=== PATIENT | female | born 1975 | race American Indian/Alaskan Native ===

== ENCOUNTER 2022-04-04 15:39 | Emergency (ER) | payer MEDICAID, OTHER ==
--- NOTE | 2022-04-04 17:35 | Emergency Department Report ---
ED Altered Mental Status HPI - General Chief Complaint: Altered Mental Status Stated Complaint: ALTERED MENTAL Time Seen by Provider: 04/04/22 17:28 Source: EMS Mode of arrival: Stretcher Limitations: Altered Mental Status - History of Present Illness Initial Comments: Patient is a 46-year-old male brought in by EMS from home for altered mental status. He was apparently found by his friends on the floor and not speaking. He is awake and alert however nonverbal. He is moving all extremities. Responds to voice however does not follow commands. - Related Data Allergies Allergy/AdvReac Type Severity Reaction Status Date / Time No Known Allergies Allergy Unverified 04/04/22 18:37 ED Review of Systems ROS: Stated complaint: ALTERED MENTAL Other details as noted in HPI Comment: Unobtainable due to pts medical conditions ED Past Medical Hx - Past Medical History Previous Medical History?: Yes Hx Diabetes: Yes Additional medical history: PTSD,KIDNEY DISEASE - Surgical History Past Surgical History?: No ED Physical Exam - General Limitations: Altered Mental Status General appearance: alert, in no apparent distress - Head Head exam: Present: atraumatic, normocephalic - Eye Eye exam: Present: normal appearance, PERRL, EOMI - Neck Neck exam: Absent: tenderness - Respiratory Respiratory exam: Present: normal lung sounds bilaterally. Absent: respiratory distress - Cardiovascular Cardiovascular Exam: Present: regular rate, normal rhythm, normal heart sounds - GI/Abdominal GI/Abdominal exam: Present: soft. Absent: distended, tenderness - Rectal Rectal exam: Present: deferred - Extremities Exam Extremities exam: Absent: tenderness, pedal edema - Neurological Exam Neurological exam: Present: alert, altered - Skin Skin exam: Present: warm, dry, intact, normal color ED Course Vital Signs 04/04/22 04/04/22 04/04/22 15:43 17:28 18:32 Temperature 98.7 F 98.6 F Pulse Rate 108 H 108 H 103 H Respiratory 18 18 12 Rate Blood Pressure Blood Pressure 165/77 173/77 [Left] O2 Sat by Pulse 99 99 100 Oximetry 04/04/22 04/04/22 04/04/22 18:40 20:33 20:45 Temperature Pulse Rate 82 101 H Respiratory 18 24 Rate Blood Pressure 170/89 Blood Pressure 155/85 [Left] O2 Sat by Pulse 99 90 99 Oximetry - Lab Data Result diagrams: 04/04/22 17:56 04/04/22 17:56 Lab Results 04/04/22 04/04/22 04/04/22 Range/Units 17:56 17:56 17:56 WBC 4.8 (4.5-11.0) K/mm3 RBC 3.21 L (3.65-5.03) M/mm3 Hgb 10.7 (10.1-14.3) gm/dl Hct 31.3 (30.3-42.9) % MCV 98 H (79-97) fl MCH 33 H (28-32) pg MCHC 34 (30-34) % RDW 15.9 H (13.2-15.2) % Plt Count 294 (140-440) K/mm3 Lymph % (Auto) 37.4 H (13.4-35.0) % [place] % (Auto) 9.4 H (0.0-7.3) % Eos % (Auto) 3.7 (0.0-4.3) % Baso % (Auto) 0.5 (0.0-1.8) % Lymph # (Auto) 1.8 (1.2-5.4) K/mm3 [place] # (Auto) 0.4 (0.0-0.8) K/mm3 Eos # (Auto) 0.2 (0.0-0.4) K/mm3 Baso # (Auto) 0.0 (0.0-0.1) K/mm3 Seg Neutrophils % 49.0 (40.0-70.0) % Seg Neutrophils # 2.3 (1.8-7.7) K/mm3 PT (12.2-14.9) Sec. INR (0.87-1.13) APTT (24.2-36.6) Sec. Sodium 141 (137-145) mmol/L Potassium 5.0 (3.6-5.0) mmol/L Chloride 97.6 L (98-107) mmol/L Carbon Dioxide 26 (22-30) mmol/L Anion Gap 22 mmol/L BUN 48 H (7-17) mg/dL Creatinine 13.6 H (0.6-1.2) mg/dL Estimated GFR 4 ml/min BUN/Creatinine Ratio 4 % Glucose 182 H (65-100) mg/dL Calcium 9.6 (8.4-10.2) mg/dL Total Bilirubin 0.40 (0.1-1.2) mg/dL AST 21 (5-40) units/L ALT 11 (7-56) units/L Alkaline Phosphatase 128 (35-129) units/L Ammonia (25-60) umol/L Total Creatine Kinase 289 H (30-135) units/L Troponin T 0.336 H* (0.00-0.029) ng/mL Total Protein 8.4 H (6.3-8.2) g/dL Albumin 4.8 (3.9-5) g/dL Albumin/Globulin Ratio 1.3 % Triglycerides 153 H (2-149) mg/dL Cholesterol 235 H (50-199) mg/dL LDL Cholesterol Direct 158 H (50-130) mg/dL HDL Cholesterol 48 (40-59) mg/dL Cholesterol/HDL Ratio 4.89 % Salicylates < 0.3 L (2.8-20.0) mg/dL Acetaminophen (10.0-30.0) ug/mL Plasma/Serum Alcohol (0-0.07) % 04/04/22 04/04/22 04/04/22 Range/Units 17:56 17:56 17:56 WBC (4.5-11.0) K/mm3 RBC (3.65-5.03) M/mm3 Hgb (10.1-14.3) gm/dl Hct (30.3-42.9) % MCV (79-97) fl MCH (28-32) pg MCHC (30-34) % RDW (13.2-15.2) % Plt Count (140-440) K/mm3 Lymph % (Auto) (13.4-35.0) % [place] % (Auto) (0.0-7.3) % Eos % (Auto) (0.0-4.3) % Baso % (Auto) (0.0-1.8) % Lymph # (Auto) (1.2-5.4) K/mm3 [place] # (Auto) (0.0-0.8) K/mm3 Eos # (Auto) (0.0-0.4) K/mm3 Baso # (Auto) (0.0-0.1) K/mm3 Seg Neutrophils % (40.0-70.0) % Seg Neutrophils # (1.8-7.7) K/mm3 PT 15.0 H (12.2-14.9) Sec. INR 1.06 (0.87-1.13) APTT 42.5 H (24.2-36.6) Sec. Sodium (137-145) mmol/L Potassium (3.6-5.0) mmol/L Chloride (98-107) mmol/L Carbon Dioxide (22-30) mmol/L Anion Gap mmol/L BUN (7-17) mg/dL Creatinine (0.6-1.2) mg/dL Estimated GFR ml/min BUN/Creatinine Ratio % Glucose (65-100) mg/dL Calcium (8.4-10.2) mg/dL Total Bilirubin (0.1-1.2) mg/dL AST (5-40) units/L ALT (7-56) units/L Alkaline Phosphatase (35-129) units/L Ammonia (25-60) umol/L Total Creatine Kinase (30-135) units/L Troponin T (0.00-0.029) ng/mL Total Protein (6.3-8.2) g/dL Albumin (3.9-5) g/dL Albumin/Globulin Ratio % Triglycerides (2-149) mg/dL Cholesterol (50-199) mg/dL LDL Cholesterol Direct (50-130) mg/dL HDL Cholesterol (40-59) mg/dL Cholesterol/HDL Ratio % Salicylates (2.8-20.0) mg/dL Acetaminophen 5.0 L (10.0-30.0) ug/mL Plasma/Serum Alcohol < 0.01 (0-0.07) % 04/04/22 Range/Units 17:56 WBC (4.5-11.0) K/mm3 RBC (3.65-5.03) M/mm3 Hgb (10.1-14.3) gm/dl Hct (30.3-42.9) % MCV (79-97) fl MCH (28-32) pg MCHC (30-34) % RDW (13.2-15.2) % Plt Count (140-440) K/mm3 Lymph % (Auto) (13.4-35.0) % [place] % (Auto) (0.0-7.3) % Eos % (Auto) (0.0-4.3) % Baso % (Auto) (0.0-1.8) % Lymph # (Auto) (1.2-5.4) K/mm3 [place] # (Auto) (0.0-0.8) K/mm3 Eos # (Auto) (0.0-0.4) K/mm3 Baso # (Auto) (0.0-0.1) K/mm3 Seg Neutrophils % (40.0-70.0) % Seg Neutrophils # (1.8-7.7) K/mm3 PT (12.2-14.9) Sec. INR (0.87-1.13) APTT (24.2-36.6) Sec. Sodium (137-145) mmol/L Potassium (3.6-5.0) mmol/L Chloride (98-107) mmol/L Carbon Dioxide (22-30) mmol/L Anion Gap mmol/L BUN (7-17) mg/dL Creatinine (0.6-1.2) mg/dL Estimated GFR ml/min BUN/Creatinine Ratio % Glucose (65-100) mg/dL Calcium (8.4-10.2) mg/dL Total Bilirubin (0.1-1.2) mg/dL AST (5-40) units/L ALT (7-56) units/L Alkaline Phosphatase (35-129) units/L Ammonia 20.0 L (25-60) umol/L Total Creatine Kinase (30-135) units/L Troponin T (0.00-0.029) ng/mL Total Protein (6.3-8.2) g/dL Albumin (3.9-5) g/dL Albumin/Globulin Ratio % Triglycerides (2-149) mg/dL Cholesterol (50-199) mg/dL LDL Cholesterol Direct (50-130) mg/dL HDL Cholesterol (40-59) mg/dL Cholesterol/HDL Ratio % Salicylates (2.8-20.0) mg/dL Acetaminophen (10.0-30.0) ug/mL Plasma/Serum Alcohol (0-0.07) % - Medical Decision Making CT head shows no acute intracranial process. Patient was able to walk back from CT scanner. Labs reviewed and show chronic renal failure along with elevated troponin. Patient denies any chest pain. Likely related to his chronic kidney disease. Potassium 5.0. On reassessment he is speaking normally and denies any complaints. Stable discharge home with return precautions. Critical care attestation.: If time is entered above; I have spent that time in minutes in the direct care o f this critically ill patient, excluding procedure time. ED Disposition Clinical Impression: Altered mental status, unspecified Disposition: 01 HOME / SELF CARE / HOMELESS Is pt being admited?: No Condition: Stable Additional Instructions: Please follow-up with your regular doctor as needed. You may return if your symptoms worsen. Time of Disposition: 20:58
[2022-04-04 18:40] LABS: Basophils % (Auto) 0.5 % (0.0-1.8); Eosinophils # (Auto) 0.2 K/mm3 (0.0-0.4); Eosinophils % (Auto) 3.7 % (0.0-4.3); Hematocrit 31.3 % (30.3-42.9); Hemoglobin 10.7 gm/dl (10.1-14.3); Lymphocytes # (Auto) 1.8 K/mm3 (1.2-5.4); Lymphocytes % (Auto) 37.4 % (13.4-35.0); Mean Corpuscular HGB Conc 34 % (30-34); Mean Corpuscular Volume 98 fl (79-97); Monocytes # (Auto) 0.4 K/mm3 (0.0-0.8); Monocytes % (Auto) 9.4 % (0.0-7.3); Platelet Count 294 K/mm3 (140-440); Red Blood Count 3.21 M/mm3 (3.65-5.03); Red Cell Distribution Width 15.9 % (13.2-15.2)
[2022-04-04 18:47] LABS: INR 1.06 (0.87-1.13)
[2022-04-04 18:48] LABS: Partial Thromboplastin Time 42.5 Sec. (24.2-36.6)
[2022-04-04 18:55] LABS: Albumin 4.8 g/dL (3.9-5); Calcium 9.6 mg/dL (8.4-10.2)
--- NOTE | 2022-04-04 19:17 | Cat Scan Report ---
CT head/brain wo con INDICATION / CLINICAL INFORMATION: 46 years Female; Altered Mental Status. TECHNIQUE: Routine CT head without contrast. All CT scans at this location are performed using CT dos e reduction for ALARA by means of automated exposure control. COMPARISON: None. FINDINGS: BRAIN / INTRACRANIAL CONTENTS: The brain parenchyma appears to demonstrate appropriate attenuation. T he ventricular system is within normal limits in size and configuration. There is no clear CT evidenc e of acute intracranial hemorrhage or significant mass effect. ORBITS: No significant abnormality of visualized orbits. SINUSES / MASTOIDS: No significant abnormality in the visualized paranasal sinuses or mastoid air zechariah ls. CRANIOCERVICAL JUNCTION: No significant abnormality. ADDITIONAL FINDINGS: None. IMPRESSION: 1. There is no CT evidence of acute intracranial process. Signer Name: Osvaldo Farias MD Signed: 04/04/2022 7:13 PM Workstation Name: [id number]
[2022-04-04 19:18] LABS: Chol/HDL Ratio 4.89 %
[2022-04-04 20:55] VITALS: BP 170/89
--- NOTE | 2022-04-05 09:32 | Electrocardiograph Report ---
[facility] Test Date: 2022-04-04 Test Time: 17:51:17 Pat Name: DAREN KABA Department: Room: Gender: F Certified Pharmacy Technician: 0000 : 1975 Requested By: ARNULFO NORMAN Order Number: [id number] Reading MD: Francis Cazares Measurements Intervals [place] Rate: 109 P: 53 MD: 164 QRS: 52 QRSD: 84 T: 17 QT: 358 QTc: 482 Interpretive Statements Sinus tachycardia No previous ECG available for comparison Electronically Signed On 04-05-2022 9:32:38 EDT by Francis Cazares
== END 2022-04-04 21:11 | disposition home or self-care (01) ==
LOC: ED 15:39
DX: R41.82 Altered mental status, unspecified (principal); E11.9 Type 2 diabetes mellitus without complications
CPT/HCPCS: 36415; 70450; 80053; 80061; 80320; 82140; 82550; 84484; 85025; 85610; 85730; 93005; 99284; G0480

== ENCOUNTER 2022-04-10 09:14 | Inpatient (IN) | payer MEDICARE ==
[2022-04-10] MEDS ORDERED: SODIUM CHLORIDE 0.9% 1000 ML 1,000 ML IV ONE (09:35)
[2022-04-10] MEDS ORDERED: MORPHINE 4 MG/1 ML INJ IV ONE (09:35)
[2022-04-10] MEDS ORDERED: ONDANSETRON 4 MG/2 ML INJ IV ONE (09:35)
[2022-04-10 10:40] LABS: Basophils % (Auto) 1.1 % (0.0-1.8); Eosinophils # (Auto) 0.2 K/mm3 (0.0-0.4); Eosinophils % (Auto) 4.5 % (0.0-4.3); Hematocrit 27.8 % (30.3-42.9); Hemoglobin 9.4 gm/dl (10.1-14.3); Lymphocytes # (Auto) 1.4 K/mm3 (1.2-5.4); Mean Corpuscular HGB Conc 34 % (30-34); Mean Corpuscular Volume 98 fl (79-97); Monocytes # (Auto) 0.4 K/mm3 (0.0-0.8); Platelet Count 268 K/mm3 (140-440); Red Blood Count 2.84 M/mm3 (3.65-5.03); Red Cell Distribution Width 15.9 % (13.2-15.2)
[2022-04-10 10:52] LABS: Alanine Aminotransferase 22 units/L (7-56); Albumin 4.6 g/dL (3.9-5); Blood Urea Nitrogen 83 mg/dL (7-17); Calcium 8.6 mg/dL (8.4-10.2); Hemolysis Index 18
[2022-04-10 10:54] LABS: BUN/Creatinine Ratio 4; Bilirubin,Direct < 0.2 mg/dL (0-0.2)
[2022-04-10] MEDS ORDERED: SODIUM POLYSTYRENE 15 GM/60 ML ORAL LIQD PO ONE (11:38)
--- NOTE | 2022-04-10 12:34 | Emergency Department Report ---
ED N/V/D HPI - General Chief complaint: Abdominal Pain Stated complaint: ABD PAIN Time Seen by Provider: 04/10/22 09:33 Source: patient, EMS Mode of arrival: Stretcher Limitations: No Limitations - History of Present Illness Initial comments: Patient is a 46-year-old male presenting the ED with complaint of nausea and vomiting with abdominal cramping. Recently diagnosed with kidney failure several weeks ago and seen at [facility] where he received his initial dialysis. He was seen here a little over a week later due to shortness of breath and required dialysis as he had not yet been set up with outpatient dialysis center. States his designated dialysis center is [facility] however he has not yet received an appointment. - Related Data Home Medications Medication Instructions Recorded Confirmed Last Taken ARIPiprazole [Abilify TAB] 2.5 mg PO DAILY 04/10/22 04/10/22 Unknown Apixaban [Eliquis] 5 mg PO QDAY 04/10/22 04/10/22 Unknown Calcium Acetate 667 mg PO QDAY 04/10/22 04/10/22 Unknown Cinacalcet [Sensipar] 30 mg PO BID 04/10/22 04/10/22 Unknown Dolutegravir Sodium/Lamivudine 1 each PO QDAY 04/10/22 04/10/22 Unknown [Dovato 50-300 mg Tablet] Pantoprazole [Protonix] 40 mg PO QDAY 04/10/22 04/10/22 Unknown Sertraline [Zoloft] 50 mg PO QDAY 04/10/22 04/10/22 Unknown amLODIPine [Norvasc] 10 mg PO DAILY 04/10/22 04/10/22 Unknown carvediloL [Coreg] 25 mg PO BID 04/10/22 04/10/22 Unknown glipiZIDE [Glucotrol] 5 mg PO QDAY 04/10/22 04/10/22 Unknown hydroCHLOROthiazide [HCTZ] 25 mg PO QDAY 04/10/22 04/10/22 Unknown lamoTRIgine [LaMICtal Xr] 300 mg PO QDAY 04/10/22 04/10/22 Unknown Allergies Allergy/AdvReac Type Severity Reaction Status Date / Time No Known Allergies Allergy Verified 04/10/22 10:07 ED Review of Systems ROS: Stated complaint: ABD PAIN Other details as noted in HPI Constitutional: denies: chills, fever Respiratory: denies: cough, shortness of breath, wheezing Cardiovascular: denies: chest pain, palpitations Gastrointestinal: abdominal pain, nausea, vomiting. denies: diarrhea Genitourinary: denies: urgency, dysuria, discharge Musculoskeletal: denies: back pain, joint swelling, arthralgia Skin: denies: rash, lesions Neurological: as per HPI Psychiatric: denies: anxiety, depression ED Past Medical Hx - Past Medical History Hx Hypertension: Yes Hx Diabetes: Yes Hx Renal Disease: Yes (HD) Hx HIV: Yes Additional medical history: PTSD,KIDNEY DISEASE - Social History Smoking Status: Never Smoker - Medications Home Medications: Home Medications Medication Instructions Recorded Confirmed Last Taken Type ARIPiprazole [Abilify TAB] 2.5 mg PO DAILY 04/10/22 04/10/22 Unknown History Apixaban [Eliquis] 5 mg PO QDAY 04/10/22 04/10/22 Unknown History Calcium Acetate 667 mg PO QDAY 04/10/22 04/10/22 Unknown History Cinacalcet [Sensipar] 30 mg PO BID 04/10/22 04/10/22 Unknown History Dolutegravir Sodium/Lamivudine 1 each PO QDAY 04/10/22 04/10/22 Unknown History [Dovato 50-300 mg Tablet] Pantoprazole [Protonix] 40 mg PO QDAY 04/10/22 04/10/22 Unknown History Sertraline [Zoloft] 50 mg PO QDAY 04/10/22 04/10/22 Unknown History amLODIPine [Norvasc] 10 mg PO DAILY 04/10/22 04/10/22 Unknown History carvediloL [Coreg] 25 mg PO BID 04/10/22 04/10/22 Unknown History glipiZIDE [Glucotrol] 5 mg PO QDAY 04/10/22 04/10/22 Unknown History hydroCHLOROthiazide [HCTZ] 25 mg PO QDAY 04/10/22 04/10/22 Unknown History lamoTRIgine [LaMICtal Xr] 300 mg PO QDAY 04/10/22 04/10/22 Unknown History ED Physical Exam - General Limitations: No Limitations General appearance: alert, in no apparent distress - Head Head exam: Present: atraumatic, normocephalic - Respiratory Respiratory exam: Present: normal lung sounds bilaterally, respiratory distress - Cardiovascular Cardiovascular Exam: Present: regular rate, normal rhythm, normal heart sounds - GI/Abdominal GI/Abdominal exam: Present: soft. Absent: distended, tenderness - Rectal Rectal exam: Present: deferred - Neurological Exam Neurological exam: Present: alert, oriented X3 - Psychiatric Psychiatric exam: Present: normal affect, normal mood - Skin Skin exam: Present: warm, dry, intact, normal color ED Course Vital Signs 04/10/22 04/10/22 04/10/22 09:19 10:05 10:45 Temperature 98.3 F Pulse Rate 80 89 Respiratory 18 17 Rate Blood Pressure 210/100 189/97 [Left] O2 Sat by Pulse 99 99 99 Oximetry 04/10/22 11:46 Temperature Pulse Rate 87 Respiratory Rate Blood Pressure 173/97 [Left] O2 Sat by Pulse 96 Oximetry ED Medical Decision Making - Lab Data Result diagrams: 04/10/22 09:52 04/10/22 09:52 - Medical Decision Making Serum potassium 6.1. Patient given oral Kayexalate. He was also given IV morphine and Zofran. I discussed the case with on-call systems program manager Dr. Quintana who will consult and arrange for dialysis. Will admit to hospitalist. Critical care attestation.: If time is entered above; I have spent that time in minutes in the direct care of this critically ill patient, excluding procedure time. ED Disposition Clinical Impression: Hyperkalemia, ESRD needing dialysis Disposition: ADMITTED INPATIENT Is pt being admited?: Yes Condition: Stable Instructions: Abdominal Pain (ED)
[2022-04-10] MEDS ORDERED: HEPARIN 10,000 UNIT/1 ML VIAL IV PRN (13:34)
[2022-04-10] MEDS ORDERED: SODIUM CHLORIDE 0.9% 100 ML IV PRN (13:34)
--- NOTE | 2022-04-10 13:34 | Consultation ---
History of Present Illness - Reason for Consult Consult date: 04/10/22 end stage renal disease Requesting physician: ARNULFO NORMAN - History of Present Illness 46-year-old with a history of diabetes mellitus, hypertension complicated by end-stage renal disease on hemodialysis since 2019. Patient moved to [place] for the summer and moving back now has not been set up at the outpatient dialysis clinic. She is meant to start at [facility] but has not been able to get a chair time. Has had to be dialyzing in the hospital. Presents with nausea, vomiting, abdominal pain and cramping worse in the right upper quadrant. Patient also has diarrhea and was seen at [facility] and diagnosed with colitis. Was prescribed and antibiotics ? Flagyl but was unable to tolerate it due to GI side effects. Blood pressure was elevated at 210/100 and potassium was high at 6.1 mmol/L with bicarbonate low at 19 mmol/L. I am consulted to assist in managing end-stage renal disease, provide dialysis and manage fluid and electrolyte abnormalities. Patient was diagnosed with gastroparesis about 4 years ago. Patient also admits to shortness of breath on exertion and orthopnea. Past History Past Medical History: anemia (Of chronic kidney disease), diabetes (Type I diagnosed at age 19 complicated by neuropathy ambulates with a walker due to frequent falls most recently a week ago, gastroparesis), ESRD, hypertension, other Past Surgical History: Other (AV fistula surgery, left foot surgery, bilateral eye surgeries) Medications and Allergies Allergies Allergy/AdvReac Type Severity Reaction Status Date / Time No Known Allergies Allergy Verified 04/10/22 10:07 Home Medications Medication Instructions Recorded Confirmed Last Taken Type ARIPiprazole [Abilify TAB] 2.5 mg PO DAILY 04/10/22 04/10/22 Unknown History Apixaban [Eliquis] 5 mg PO BID 04/10/22 04/10/22 Unknown History Calcium Acetate 667 mg PO QDAY 04/10/22 04/10/22 Unknown History Cinacalcet [Sensipar] 30 mg PO BID 04/10/22 04/10/22 Unknown History Dolutegravir Sodium/Lamivudine 1 each PO QDAY 04/10/22 04/10/22 Unknown History [Dovato 50-300 mg Tablet] Pantoprazole [Protonix] 40 mg PO QDAY 04/10/22 04/10/22 Unknown History Sertraline [Zoloft] 50 mg PO QDAY 04/10/22 04/10/22 Unknown History amLODIPine [Norvasc] 10 mg PO DAILY 04/10/22 04/10/22 Unknown History carvediloL [Coreg] 25 mg PO BID 04/10/22 04/10/22 Unknown History glipiZIDE [Glucotrol] 5 mg PO QDAY 04/10/22 04/10/22 Unknown History hydroCHLOROthiazide [HCTZ] 25 mg PO QDAY 04/10/22 04/10/22 Unknown History lamoTRIgine [LaMICtal Xr] 300 mg PO QDAY 04/10/22 04/10/22 Unknown History Review of Systems All systems: negative (Constitutional: no fever but had chills. No anorexia or weight loss. HEENT: No sore throat or sinus drainage no hearing, admits to vision impairment . Cardiovascular: No chest pain, shortness of breath, palpitations, lower extremity swelling or dizziness. Respiratory: No cough, sputum,) Respiratory: shortness of breath Gastrointestinal: abdominal pain, nausea, diarrhea, no hematemesis, no coffee ground emesis, no BRBPR, no melena Musculoskeletal: other (Joint pains and stiffness especially in knees), no shooting arm pain, no hot joints Integumentary: pruritis, no rash Neurological: parathesias, headaches, gait dysfunction (Ambulates with a w alker), no seizures Psychiatric: anxiety, depression Endocrine: cold intolerance, no heat intolerance Hematologic/Lymphatic: easy bruising Exam - Vital Signs Vital signs: Vital Signs Temp Pulse Resp BP Pulse Ox 98.3 F 80 18 210/100 99 04/10/22 09:19 04/10/22 09:19 04/10/22 09:19 04/10/22 09:19 04/10/22 09:19 - Physical Exam Narrative exam: Middle-aged -Spanish in no acute distress HEENT: NCAT, pink conjunctiva anicteric sclera, irregular pupil left eye Neck: Supple, no venous distention CVS: S1S2 RRR with no murmur, rub or gallop Chest: Diminished breath sounds in lower zones with few rales on the right Abdomen: Protuberant, soft, vague tenderness on the right, no organomegaly, bowel sounds are present Extremities: No edema, right upper extremity AV fistula Genitourinary deferred Skin warm and dry Neuro: Awake, alert no focal deficits Results - Lab Results 04/10/22 09:52 04/10/22 09:52 Most recent lab results Calcium 8.6 mg/dL (8.4-10.2) 04/10/22 09:52 Assessment and Plan - Patient Problems (1) Hyperkalemia Current Visit: No Status: Acute Plan to address problem: Hyperkalemia secondary to missed dialysis. Treated medically in the ER. We will dialyze and then repeat potassium (2) Accelerated hypertension Current Visit: Yes Status: Acute Plan to address problem: Accelerated hypertension probably volume related secondary to missed dialysis. Resume oral antihypertensive medications. Hemodialysis for fluid removal and then follow-up blood pressure (3) Metabolic acidosis Current Visit: Yes Status: Acute Plan to address problem: Uremic acidosis secondary to missed dialysis. Correct with hemodialysis (4) ESRD needing dialysis Current Visit: No Status: Acute Plan to address problem: Needs arrangement for outpatient dialysis finalized. project account manager to assist [facility] this tomorrow (5) Type 1 diabetes mellitus with diabetic chronic kidney disease Current Visit: Yes Status: Acute Plan to address problem: Blood sugar management by primary attending. (6) Anemia in end-stage renal disease Current Visit: Yes Status: Acute Plan to address problem: Give erythropoietin on dialysis once blood pressure is controlled. (7) Nausea, vomiting and diarrhea Current Visit: Yes Status: Acute Plan to address problem: Question colitis. Get records from [facility].
--- NOTE | 2022-04-10 16:30 | History and Physical Report ---
History of Present Illness Date of examination: 04/10/22 Date of admission: 04/10/2022 Chief complaint: Increasing shortness of breath for 1 day History of present illness: 46-year-old male coming in for increased nausea vomiting and abdominal cramps. Recently diagnosed with kidney disease and was receiving dialysis at [facility]. Hemodialysis chair was not in advance. States he had a significant dialysis center at [facility] however it is not yet received an appointment. Patient is short of breath and orthopneic. Missed dialysis for the last 3 sessions. No fever or chills. - Past Medical History --Hypertension: Yes --Diabetes: Yes --Renal Disease: Yes (HD) --HIV: Yes --Additional medical history: PTSD,KIDNEY DISEASE -Surgical history -- AV fistula -Family history --hypertension - Social History --Smoking Status: Never Smoker - Medications --Home Medications: Home Medications Medication Instructions Recorded Confirmed Last Taken Type ARIPiprazole [Abilify TAB] 2.5 mg PO DAILY 04/10/22 04/10/22 Unknown History Apixaban [Eliquis] 5 mg PO QDAY 04/10/22 04/10/22 Unknown History Calcium Acetate 667 mg PO QDAY 04/10/22 04/10/22 Unknown History Cinacalcet [Sensipar] 30 mg PO BID 04/10/22 04/10/22 Unknown History Dolutegravir Sodium/Lamivudine 1 each PO QDAY 04/10/22 04/10/22 Unknown History [Dovato 50-300 mg Tablet] Pantoprazole [Protonix] 40 mg PO QDAY 04/10/22 04/10/22 Unknown History Sertraline [Zoloft] 50 mg PO QDAY 04/10/22 04/10/22 Unknown History amLODIPine [Norvasc] 10 mg PO DAILY 04/10/22 04/10/22 Unknown History carvediloL [Coreg] 25 mg PO BID 04/10/22 04/10/22 Unknown History glipiZIDE [Glucotrol] 5 mg PO QDAY 04/10/22 04/10/22 Unknown History hydroCHLOROthiazide [HCTZ] 25 mg PO QDAY 04/10/22 04/10/22 Unknown History lamoTRIgine [LaMICtal Xr] 300 mg PO QDAY 04/10/22 04/10/22 Unknown History Review of Systems ROS: Stated complaint: ABD PAIN Other details as noted in HPI Constitutional: denies: chills, fever Respiratory: denies: cough, shortness of breath, wheezing Cardiovascular: denies: chest pain, palpitations Gastrointestinal: abdominal pain, nausea, vomiting. denies: diarrhea Genitourinary: denies: urgency, dysuria, discharge Musculoskeletal: denies: back pain, joint swelling, arthralgia Skin: denies: rash, lesions Neurological: as per HPI Psychiatric: denies: anxiety, depression Medications and Allergies Allergies Allergy/AdvReac Type Severity Reaction Status Date / Time No Known Allergies Allergy Verified 04/10/22 10:07 Home Medications Medication Instructions Recorded Confirmed Last Taken Type ARIPiprazole [Abilify TAB] 2.5 mg PO DAILY 04/10/22 04/11/22 04/11/22 00:15 History Apixaban [Eliquis] 5 mg PO BID 04/10/22 04/11/22 04/11/22 00:15 History Calcium Acetate 667 mg PO QDAY 04/10/22 04/11/22 04/09/22 09:00 History Cinacalcet [Sensipar] 30 mg PO BID 04/10/22 04/11/22 04/11/22 00:15 History Dolutegravir Sodium/Lamivudine 1 each PO QDAY 04/10/22 04/11/22 04/09/22 09:00 History [Dovato 50-300 mg Tablet] Pantoprazole [Protonix] 40 mg PO QDAY 04/10/22 04/11/22 04/09/22 09:00 History Sertraline [Zoloft] 50 mg PO QDAY 04/10/22 04/11/22 04/09/22 21:00 History amLODIPine [Norvasc] 10 mg PO DAILY 04/10/22 04/11/22 04/10/22 23:00 History carvediloL [Coreg] 25 mg PO BID 04/10/22 04/11/22 04/10/22 23:00 History glipiZIDE [Glucotrol] 5 mg PO QDAY 04/10/22 04/11/22 04/09/22 09:00 History hydroCHLOROthiazide [HCTZ] 25 mg PO QDAY 04/10/22 04/11/22 04/10/22 23:00 History lamoTRIgine [LaMICtal Xr] 300 mg PO QDAY 04/10/22 04/11/22 04/09/22 09:00 History Active Meds: Active Medications Heparin Sodium (Porcine) (Heparin 10,000 Unit/1 Ml Vial) 5,000 unit IV KIRILL PRN PRN Reason: hemodialysis Sodium Chloride (Nacl 0.9%) 100 mls @ 999 mls/hr IV KIRILL PRN PRN Reason: Hypotension Exam - Constitutional Vitals: Temp Pulse Resp BP Pulse Ox 98.3 F 88 22 193/103 93 04/10/22 09:19 04/10/22 16:00 04/10/22 16:00 04/10/22 16:00 04/10/22 16:00 General appearance: Present: no acute distress, well-nourished - EENT Eyes: Present: PERRL ENT: hearing intact, clear oral mucosa - Neck Neck: Present: supple, normal ROM - Respiratory Respiratory effort: normal Respiratory: bilateral: CTA - Cardiovascular Heart rate: 78 Rhythm: regular Heart Sounds: Present: S1 & S2. Absent: rub, click - Extremities Extremities: no ischemia, pulses intact, pulses symmetrical, No edema Peripheral Pulses: within normal limits - Abdominal General gastrointestinal: Present: soft, non-tender, non-distended, normal bowel sounds Female genitourinary: Present: normal - Rectal Rectal Exam: deferred - Integumentary Integumentary: Present: clear, warm, dry - Musculoskeletal Musculoskeletal: gait normal, strength equal bilaterally - Psychiatric Psychiatric: appropriate mood/affect, intact judgment & insight - Neurologic Neurologic: CNII-XII intact, moves all extremities - Allied Health Allied health notes reviewed: nursing, case management Results - Labs CBC & Chem 7: 04/11/22 05:01 04/11/22 05:01 Labs: Laboratory Last Values WBC 4.4 K/mm3 (4.5-11.0) L 04/10/22 09:52 RBC 2.84 M/mm3 (3.65-5.03) L 04/10/22 09:52 Hgb 9.4 gm/dl (10.1-14.3) L 04/10/22 09:52 Hct 27.8 % (30.3-42.9) L 04/10/22 09:52 MCV 98 fl (79-97) H 04/10/22 09:52 MCH 33 pg (28-32) H 04/10/22 09:52 MCHC 34 % (30-34) 04/10/22 09:52 RDW 15.9 % (13.2-15.2) H 04/10/22 09:52 Plt Count 268 K/mm3 (140-440) 04/10/22 09:52 Lymph % (Auto) 33.0 % (13.4-35.0) 04/10/22 09:52 [place] % (Auto) 10.0 % (0.0-7.3) H 04/10/22 09:52 Eos % (Auto) 4.5 % (0.0-4.3) H 04/10/22 09:52 Baso % (Auto) 1.1 % (0.0-1.8) 04/10/22 09:52 Lymph # (Auto) 1.4 K/mm3 (1.2-5.4) 04/10/22 09:52 [place] # (Auto) 0.4 K/mm3 (0.0-0.8) 04/10/22 09:52 Eos # (Auto) 0.2 K/mm3 (0.0-0.4) 04/10/22 09:52 Baso # (Auto) 0.0 K/mm3 (0.0-0.1) 04/10/22 09:52 Seg Neutrophils % 51.4 % (40.0-70.0) 04/10/22 09:52 Seg Neutrophils # 2.2 K/mm3 (1.8-7.7) 04/10/22 09:52 Sodium 139 mmol/L (137-145) 04/10/22 09:52 Potassium 6.1 mmol/L (3.6-5.0) H* 04/10/22 09:52 Chloride 95.7 mmol/L (98-107) L 04/10/22 09:52 Carbon Dioxide 19 mmol/L (22-30) L 04/10/22 09:52 Anion Gap 30 mmol/L 04/10/22 09:52 BUN 83 mg/dL (7-17) H 04/10/22 09:52 Creatinine 23.2 mg/dL (0.6-1.2) H 04/10/22 09:52 Estimated GFR 2 ml/min 04/10/22 09:52 BUN/Creatinine Ratio 4 % 04/10/22 09:52 Glucose 75 mg/dL (65-100) 04/10/22 09:52 Calcium 8.6 mg/dL (8.4-10.2) 04/10/22 09:52 Total Bilirubin 0.30 mg/dL (0.1-1.2) 04/10/22 09:52 Direct Bilirubin < 0.2 mg/dL (0-0.2) 04/10/22 09:52 Indirect Bilirubin 0.1 mg/dL 04/10/22 09:52 AST 26 units/L (5-40) 04/10/22 09:52 ALT 22 units/L (7-56) 04/10/22 09:52 Alkaline Phosphatase 115 units/L (35-129) 04/10/22 09:52 Total Protein 7.6 g/dL (6.3-8.2) 04/10/22 09:52 Albumin 4.6 g/dL (3.9-5) 04/10/22 09:52 Albumin/Globulin Ratio 1.5 % 04/10/22 09:52 Lipase 29 units/L (13-60) 04/10/22 09:52 HCG, Qual Negative (Negative) 04/10/22 09:52 Assessment and Plan Advance Directives: Yes (Full code) VTE prophylaxis?: Chemical Plan of care discussed with patient/family: Yes - Patient Problems (1) Volume overload Current Visit: Yes Status: Acute Plan to address problem: Secondary to missed dialysis Needs emergent hemodialysis Nephrology consulted (2) End stage renal disease on dialysis Current Visit: Yes Status: Chronic Plan to address problem: Emergent hemodialysis nozzle and sleeve worker to look into a hemodialysis chair Patient apparently dialysis and arranged hemodialysis chair Nephrology consulted (3) Hyperkalemia Current Visit: Yes Status: Acute Plan to address problem: Treated in the emergency room with Kayexalate calcium gluconate and IV insulin (4) Metabolic acidosis Current Visit: Yes Status: Acute Plan to address problem: On hemodialysis (5) Anemia Current Visit: Yes Status: Chronic Plan to address problem: Secondary to chronic kidney disease (6) DVT prophylaxis Current Visit: Yes Status: Acute Plan to address problem: On heparin and GI prophylaxis (7) Advance care planning Current Visit: Yes Status: Acute Plan to address problem: Disease education conducted, care plan discussed, diagnosis and prognosis discussed. Patient is full code. Patient acknowledged understanding care plan +30 minutes.
[2022-04-10] MEDS ORDERED: METOCLOPRAMIDE 10 MG/2 ML INJ IV PRN (16:38)
[2022-04-10] MEDS ORDERED: ACETAMINOPHEN 325 MG TAB PO PRN (16:38)
[2022-04-10] MEDS ORDERED: oxyCODONE /ACETAMINOPHEN 5-325MG TAB PO PRN (16:38)
[2022-04-10] MEDS ORDERED: ONDANSETRON 4 MG/2 ML INJ IV PRN (16:38)
[2022-04-10] MEDS ORDERED: MORPHINE 2 MG/1 ML INJ IV PRN (16:38)
[2022-04-10] MEDS ORDERED: CALCIUM ACETATE 667 MG CAP PO SCH (16:45)
[2022-04-10] MEDS ORDERED: NON-FORMULARY EACH (Calcium Acetate [Calcium Acetate] 667 MG Tablet) PO SCH (16:45)
[2022-04-10] MEDS ORDERED: [UNRECOGNIZED DRUG - OTHER] PO SCH (16:45)
[2022-04-10] MEDS ORDERED: LAMOTRIGINE 300 MG PO SCH (16:45)
[2022-04-10] MEDS ORDERED: NON-FORMULARY EACH (Apixaban 5 MG Tablet) PO SCH (16:45)
[2022-04-10] MEDS ORDERED: LAMIVUDINE PO SCH (16:45)
[2022-04-10] MEDS ORDERED: DOLUTEGRAVIR SODIUM PO SCH (16:45)
[2022-04-10] MEDS ORDERED: INSULIN LISPRO 100 UNIT/ML SUB-Q ONE (16:52)
[2022-04-10] MEDS ORDERED: glipiZIDE 5 MG TAB PO SCH (17:00)
[2022-04-10] MEDS: ARIPiprazole 5 MG TAB PO SCH (18:38)
[2022-04-10] MEDS: hydroCHLOROthiazide 25 MG TAB PO SCH ×2 (18:38→22:11)
[2022-04-10] MEDS: amLODIPine 10 MG TAB PO SCH ×2 (18:38→22:10)
[2022-04-10] MEDS: PANTOPRAZOLE 40 MG TAB PO SCH (18:38)
[2022-04-10 19:02] LABS: Hepatitis B Surface Antigen Non-Reactive (Negative); Hepatitis C Virus Antibody Non-Reactive (NonReactive)
[2022-04-10 19:10] LABS: INR 0.97 (0.87-1.13)
[2022-04-10 19:11] LABS: Partial Thromboplastin Time 36.5 Sec. (24.2-36.6)
[2022-04-10 19:59] LABS: Red Blood Count 2.88 M/mm3 (3.65-5.03)
[2022-04-10 20:00] LABS: Hematocrit 29.5 % (30.3-42.9); Hemoglobin 9.5 gm/dl (10.1-14.3); Mean Corpuscular HGB Conc 32 % (30-34); Mean Corpuscular Volume 103 fl (79-97); Platelet Count 275 K/mm3 (140-440); Red Cell Distribution Width 16.4 % (13.2-15.2)
[2022-04-10] MEDS ORDERED: FAMOTIDINE 10 MG TAB PO SCH (22:00)
[2022-04-10] MEDS: carvediloL 25 MG TAB PO SCH (22:09)
[2022-04-11] MEDS: APIXABAN 5 MG TAB PO SCH ×3 (00:12→15:13)
[2022-04-11] MEDS: ARIPiprazole 5 MG TAB PO SCH ×3 (00:12→15:12)
[2022-04-11] MEDS: CINACALCET 30 MG TAB PO SCH ×2 (00:12→12:04)
[2022-04-11 05:27] LABS: Basophils % (Auto) 0.9 % (0.0-1.8); Eosinophils # (Auto) 0.2 K/mm3 (0.0-0.4); Eosinophils % (Auto) 4.9 % (0.0-4.3); Hematocrit 27.3 % (30.3-42.9); Hemoglobin 9.2 gm/dl (10.1-14.3); Lymphocytes # (Auto) 1.2 K/mm3 (1.2-5.4); Lymphocytes % (Auto) 30.7 % (13.4-35.0); Mean Corpuscular HGB Conc 34 % (30-34); Mean Corpuscular Volume 97 fl (79-97); Monocytes # (Auto) 0.5 K/mm3 (0.0-0.8); Monocytes % (Auto) 13.5 % (0.0-7.3); Platelet Count 255 K/mm3 (140-440); Red Blood Count 2.81 M/mm3 (3.65-5.03); Red Cell Distribution Width 15.9 % (13.2-15.2)
[2022-04-11 05:55] LABS: Albumin 4.6 g/dL (3.9-5); Calcium 8.8 mg/dL (8.4-10.2)
[2022-04-11] MEDS: amLODIPine 10 MG TAB PO SCH (06:34)
[2022-04-11] MEDS ORDERED: CALCIUM ACETATE 667 MG CAP PO SCH (08:30)
[2022-04-11] MEDS ORDERED: SERTRALINE 50 MG TAB PO SCH (10:00)
[2022-04-11] MEDS ORDERED: ARIPIPRAZOLE 2 MG PO SCH (10:00)
[2022-04-11] MEDS ORDERED: DOLUTEGRAVIR 50 MG TAB PO SCH (10:00)
[2022-04-11] MEDS ORDERED: glipiZIDE 5 MG TAB PO SCH (10:11)
[2022-04-11] MEDS ORDERED: lamiVUDine 50 MG/5 ML ORAL LIQD PO SCH (11:00)
--- NOTE | 2022-04-11 11:30 | Progress Note ---
Assessment and Plan - Patient Problems (1) Hyperkalemia Current Visit: Yes Status: Acute Plan to address problem: levels are appropriate this morning as it has been corrected with hemodialysis yesterday. Counseled patient on the importance of maintaining a low potassium diet. (2) End stage renal disease on dialysis Current Visit: Yes Status: Chronic Plan to address problem: continue on hemodialysis inpatient regimen. Plan for dialysis today and will maintain on a Monday inpatient hemodialysis schedule. Patient is working to get set up at outpatient dialysis facility at [facility]. He already has a assembly repairer that he is following up with. Would ask case management for assistance in regards to helping accelerate this process so that he can be placed at this outpatient facility. (3) Hypertensive chronic kidney disease with stage 5 chronic kidney disease or end stage renal disease Current Visit: Yes Status: Chronic Plan to address problem: monitor blood pressure on his current regimen. (4) Anemia in end-stage renal disease Current Visit: Yes Status: Chronic Plan to address problem: continue DONNY therapy with hemodialysis. (5) Type 2 diabetes mellitus with diabetic chronic kidney disease Current Visit: Yes Status: Chronic Plan to address problem: diabetes management per primary attending. Subjective Date of service: 04/11/22 Interval history: no acute issues this morning. Patient tolerated hemodialysis well. Plan for treatment this morning. Objective - Vital Signs Vital signs: Vital Signs - 12hr 04/11/22 04/11/22 04:14 06:34 Temperature 98.9 F Pulse Rate 87 79 Respiratory 16 Rate Blood Pressure 173/89 173/89 O2 Sat by Pulse 95 Oximetry - General Appearance General appearance: well-developed, appears stated age EENT: ATNC Neck: no JVD, no thyromegaly Respiratory: Present: Clear to Ascultation Cardiology: regular Gastrointestinal: normal Integumentary: no rash Neurologic: no focal deficit Musculoskeletal: deferred Psychiatric: cooperative - Lab 04/11/22 05:01 04/11/22 05:01 Most recent lab results Calcium 8.8 mg/dL (8.4-10.2) 04/11/22 05:01 - Allied health notes Allied health notes reviewed: nursing Medications & Allergies - Medications Allergies/Adverse Reactions: Allergies No Known Allergies Allergy (Verified 04/10/22 10:07) Home Medications: Home Medications Medication Instructions Recorded Confirmed Last Taken Type ARIPiprazole [Abilify TAB] 2.5 mg PO DAILY 04/10/22 04/11/22 04/11/22 00:15 History Apixaban [Eliquis] 5 mg PO BID 04/10/22 04/11/22 04/11/22 00:15 History Calcium Acetate 667 mg PO QDAY 04/10/22 04/11/22 04/09/22 09:00 History Cinacalcet [Sensipar] 30 mg PO BID 04/10/22 04/11/22 04/11/22 00:15 History Dolutegravir Sodium/Lamivudine 1 each PO QDAY 04/10/22 04/11/22 04/09/22 09:00 History [Dovato 50-300 mg Tablet] Pantoprazole [Protonix] 40 mg PO QDAY 04/10/22 04/11/22 04/09/22 09:00 History Sertraline [Zoloft] 50 mg PO QDAY 04/10/22 04/11/22 04/09/22 21:00 History amLODIPine [Norvasc] 10 mg PO DAILY 04/10/22 04/11/22 04/10/22 23:00 History carvediloL [Coreg] 25 mg PO BID 04/10/22 04/11/22 04/10/22 23:00 History glipiZIDE [Glucotrol] 5 mg PO QDAY 04/10/22 04/11/22 04/09/22 09:00 History hydroCHLOROthiazide [HCTZ] 25 mg PO QDAY 04/10/22 04/11/22 04/10/22 23:00 History lamoTRIgine [LaMICtal Xr] 300 mg PO QDAY 04/10/22 04/11/22 04/09/22 09:00 History Active Medications: Generic Name Dose Route Start Last Admin Trade Name Freq PRN Reason Stop Dose Admin Acetaminophen 650 mg 04/10/22 16:38 Acetaminophen 325 Mg Tab PO Q4H PRN Pain MILD(1-3)/Fever >100.5/LANGE Apixaban 5 mg 04/10/22 22:00 04/11/22 00:12 Apixaban 5 Mg Tab PO 5 mg Q12HR JESSICA Administration Protocol Aripiprazole 2.5 mg 04/10/22 18:00 04/11/22 00:12 Aripiprazole 5 Mg Tab PO 2.5 mg DAILY JESSICA Administration Calcium Acetate 667 mg 04/11/22 08:30 04/11/22 08:55 Calcium Acetate 667 Mg Cap PO 667 mg DAILY@0800 [facility] Administration Carvedilol 25 mg 04/10/22 22:00 04/10/22 22:09 Carvedilol 25 Mg Tab PO 25 mg BID [facility] Administration Cinacalcet 30 mg 04/10/22 22:00 04/11/22 00:12 Cinacalcet 30 Mg Tab PO 30 mg BID [facility] Administration Dolutegravir Sodium 50 mg 04/11/22 10:00 Dolutegravir 50 Mg Tab PO QDAY [facility] Glipizide 5 mg 04/11/22 10:11 Glipizide 5 Mg Tab PO QDDIAB [facility] Heparin Sodium (Porcine) 5,000 unit 04/10/22 13:34 Heparin 10,000 Unit/1 Ml Vial IV KIRILL PRN hemodialysis Hydralazine HCl 25 mg 04/11/22 14:00 Hydralazine 25 Mg Tab PO Q8HR [facility] Hydrochlorothiazide 25 mg 04/10/22 17:00 04/10/22 22:11 Hydrochlorothiazide 25 Mg Tab PO 25 mg QDAY [facility] Administration Sodium Chloride 100 mls @ 999 mls/hr 04/10/22 13:34 Nacl 0.9% IV KIRILL PRN Hypotension Lamivudine 50 mg 04/11/22 11:00 Lamivudine 50 Mg/5 Ml Oral Liqd PO DAILY [facility] Metoclopramide HCl 2.5 mg 04/10/22 16:38 Metoclopramide 10 Mg/2 Ml Inj IV Q6H PRN Nausea And Vomiting Miscellaneous Medication 300 mg 04/10/22 16:45 04/10/22 18:38 Lamotrigine [Lamictal Xr] PO Not Given QDAY [facility] Morphine Sulfate 2 mg 04/10/22 16:38 Morphine 2 Mg/1 Ml Inj IV Q4H PRN Pain, Moderate (4-6) Nifedipine 60 mg 04/11/22 10:00 Nifedipine Xl 60 Mg Tab PO Q12HR [facility] Ondansetron HCl 4 mg 04/10/22 16:38 Ondansetron 4 Mg/2 Ml Inj IV Q8H PRN Nausea And Vomiting Oxycodone/Acetaminophen 1 tab 04/10/22 16:38 04/11/22 08:55 Oxycodone /Acetaminophen 5-325mg Tab PO 1 tab Q6H PRN Administration Pain, Moderate (4-6) Pantoprazole Sodium 40 mg 04/10/22 17:00 04/10/22 18:38 Pantoprazole 40 Mg Tab PO Not Given QDAY JESSICA Sertraline HCl 50 mg 04/11/22 10:00 Sertraline 50 Mg Tab PO QDAY JESSICA Sodium Chloride 10 ml 04/10/22 22:00 04/11/22 00:14 Sodium Chloride 0.9% 10 Ml Flush Syringe IV 10 ml BID JESSICA Administration Sodium Chloride 10 ml 04/10/22 16:38 Sodium Chloride 0.9% 10 Ml Flush Syringe IV PRN PRN LINE FLUSH
[2022-04-11] MEDS: carvediloL 25 MG TAB PO SCH ×2 (12:02→15:20)
[2022-04-11] MEDS: hydroCHLOROthiazide 25 MG TAB PO SCH ×2 (12:03→15:20)
[2022-04-11] MEDS: NIFEdipine XL 60 MG TAB PO SCH ×2 (12:04→15:20)
[2022-04-11] MEDS: PANTOPRAZOLE 40 MG TAB PO SCH (12:04)
--- NOTE | 2022-04-11 12:15 | Discharge Summary ---
Providers - Providers Date of Admission: 04/10/22 18:19 Date of discharge: 04/11/22 Attending physician: SANDEEP TAYLOR MD 04/10/22 12:18 Consult to Physician [CONS] Stat Comment: Consulting Provider: RODRICK JOHNSON Physician Instructions: Reason For Exam: Needs dialysis Primary care physician: ESTEFANIA NORTH Hospitalization Reason for admission: Hyperkalemia, volume overload, ESRD on hemodialysis, acidosis Condition: Stable Pertinent studies: Reviewed. Procedures: None. Hospital course: Patient is a 46-year-old male past medical history of HIV, hypertension, [id number] type 2 diabetes mellitus, ESRD on hemodialysis, and history of DVT (on Eliquis 5 mg daily) who presented to the ED with complaints of nausea, vomiting, abdominal cramping, and overall malaise due to missed hemodialysis sessions. [facility], and needs his hemodialysis location has not established his dialysis days and times. The patient is designated to continue hemodialysis at [facility]. On presentation to the ED, the patient was found to be hemodynamically stable, but his blood pressure was 210/100. Patient's labs were remarkable for potassium 6.1, bicarbonate 19, creatinine 23.2, and hemoglobin 9.4. Patient was medically managed for hyperkalemia, nephrology was consulted. Patient underwent emergent hemodialysis, and the patient was hospitalized for further management. Patient described being diagnosed with colitis at an outside hospital prior to visit admission at [facility] where he was given ciprofloxacin. He described the ciprofloxacin is causing worsening stomach upset. Patient is undergoing a second hemodialysis session on 04/11/2022. Afterwards, the patient will be medically clear for discharge. Patient has been counseled to report back to the ED for hemodialysis if his appointment is still not established. Patient expresses understanding. Patient is medically clear for discharge. Disposition: 01 HOME / SELF CARE / HOMELESS Final Discharge Diagnosis (Prints w/discharge instructions): Hyperkalemia, volume overload, ESRD on hemodialysis, metabolic acidosis, HIV, anemia of chronic disease, [id number] type 2 diabetes mellitus, and hypertension. Time spent for discharge: 45 min Core Measure Documentation - Palliative Care Palliative Care/ Comfort Measures: Not Applicable - Core Measures Any of the following diagnoses?: none Exam - Constitutional Vitals: Temp Pulse Resp BP Pulse Ox 98.9 F 79 16 173/89 95 04/11/22 04:14 04/11/22 06:34 04/11/22 04:14 04/11/22 06:34 04/11/22 04:14 General appearance: Present: no acute distress, well-nourished - EENT Eyes: Present: PERRL, EOM intact ENT: hearing intact, clear oral mucosa, dentition normal - Neck Neck: Present: supple, normal ROM - Respiratory Respiratory effort: normal Respiratory: bilateral: CTA - Cardiovascular Rhythm: regular Heart Sounds: Present: S1 & S2 - Extremities Extremities: no ischemia, pulses intact, pulses symmetrical, No edema, normal temperature, normal color, Full ROM, abnormal (AV fistula and right upper extremity with palpable thrill) Peripheral Pulses: within normal limits - Abdominal General gastrointestinal: Present: soft, non-tender, non-distended, normal bowel sounds Female genitourinary: Present: deferred - Rectal Rectal Exam: deferred - Integumentary Integumentary: Present: clear, warm, dry - Musculoskeletal Musculoskeletal: strength equal bilaterally - Psychiatric Psychiatric: appropriate mood/affect, intact judgment & insight, memory intact, cooperative - Neurologic Neurologic: CNII-XII intact, moves all extremities - Allied Health Allied health notes reviewed: nursing Plan Activity: advance as tolerated Diet: low salt, diabetic, renal Additional Instructions: Patient is a 46-year-old male past medical history of HIV, hypertension, [id number] type 2 diabetes mellitus, ESRD on hemodialysis, and history of DVT (on Eliquis 5 mg daily) who presented to the ED with complaints of nausea, vomiting, abdominal cramping, and overall malaise due to missed hemodialysis sessions. [facility], and needs his hemodialysis location has not established his dialysis days and times. The patient is designated to continue hemodialysis at [facility]. On presentation to the ED, the patient was found to be hemodynamically stable, but his blood pressure was 210/100. Patient's labs were remarkable for potassium 6.1, bicarbonate 19, creatinine 23.2, and hemoglobin 9.4. Patient was medically managed for hyperkalemia, nephrology was consulted. Patient underwent emergent hemodialysis, and the patient was hospitalized for further management. Patient described being diagnosed with colitis at an outside hospital prior to visit admission at [facility] where he was given ciprofloxacin. He described the ciprofloxacin is causing worsening stomach upset. Patient is undergoing a second hemodialysis session on 04/11/2022. Afterwards, the patient will be medically clear for discharge. Patient has been counseled to report back to the ED for hemodialysis if his appointment is still not established. Patient expresses understanding. Patient is medically clear for discharge. Care Plan Goals: Patient is medically clear for discharge. Assessment: Patient is a 46-year-old male past medical history of HIV, hypertension, [id number]-qjllxyetq type 2 diabetes mellitus, ESRD on hemodialysis, and history of DVT (on Eliquis 5 mg daily) who presented to the ED with complaints of nausea, vomiting, abdominal cramping, and overall malaise due to missed hemodialysis sessions. [facility] [place] [facility], and needs his hemodialysis location has not established his dialysis days and times. The patient is designated to continue hemodialysis at [facility]. On presentation to the ED, the patient was found to be hemodynamically stable, but his blood pressure was 210/100. Patient's labs were remarkable for potassium 6.1, bicarbonate 19, creatinine 23.2, and hemoglobin 9.4. Patient was medically managed for hyperkalemia, nephrology was consulted. Patient underwent emergent hemodialysis, and the patient was hospitalized for further management. Patient described being diagnosed with colitis at an outside hospital prior to visit admission at [facility] where he was given ciprofloxacin. He described the ciprofloxacin is causing worsening stomach upset. Patient is undergoing a second hemodialysis session on 04/11/2022. Afterwards, the patient will be medically clear for discharge. Patient has been counseled to report back to the ED for hemodialysis if his appointment is still not established. Patient expresses understanding. Patient is medically clear for discharge. Follow up with: ESTEFANIA NORTH MD [Primary Care Provider] - 3-5 Days Prescriptions: hydrALAZINE [Apresoline TAB] 25 mg PO Q8HR #90 tablet
[2022-04-11] MEDS ORDERED: hydrALAZINE 25 MG TAB PO SCH (14:00)
[2022-04-11 16:07] VITALS: BP 171/88
[2022-04-11] MEDS ORDERED: metroNIDAZOLE/NS 500 MG/100 ML 500 MG/100 ML BAG IV SCH (18:00)
--- NOTE | 2022-04-12 09:54 | Electrocardiograph Report ---
[facility] Test Date: 2022-04-10 Test Time: 11:46:15 Pat Name: DAREN KABA Department: Room: A376 Gender: F Night Time Babysitter: TV : 1975 Requested By: ARNULFO NORMAN Order Number: [id number] Reading MD: Francis Cazares Measurements Intervals [place] Rate: 87 P: 47 OR: 186 QRS: 22 QRSD: 91 T: 52 QT: 400 QTc: 482 Interpretive Statements Sinus rhythm Compared to ECG 04/04/2022 17:51:17 Sinus tachycardia no longer present Electronically Signed On 04-12-2022 9:54:00 EDT by Francis Cazares
== END 2022-04-11 20:50 | disposition home or self-care (01) | DRG 640 ==
LOC: ED 09:14 → 3A 18:19
PROVIDERS: ADMIT Internal Medicine; ATTEND Student in an Organized Health Care Education/Training Program
PROC: 5A1D70Z Performance of Urinary Filtration, Intermittent, Less than 6 Hours Per Day (ICD-10-PCS; principal; 2022-04-10)
PROC: 5A1D70Z Performance of Urinary Filtration, Intermittent, Less than 6 Hours Per Day (ICD-10-PCS; 2022-04-11)
DX: E87.5 Hyperkalemia (principal); N18.6 End stage renal disease; I12.0 Hypertensive chronic kidney disease with stage 5 chronic kidney disease or end stage renal disease; E87.2 Acidosis; E11.22 Type 2 diabetes mellitus with diabetic chronic kidney disease; Z99.2 Dependence on renal dialysis; D63.1 Anemia in chronic kidney disease; E87.70 Fluid overload, unspecified; Z21 Asymptomatic human immunodeficiency virus [HIV] infection status; Z82.49 Family history of ischemic heart disease and other diseases of the circulatory system
CPT/HCPCS: 36415; 80048; 80053; 80074; 80076; 82565; 82962; 83690; 84703; 85025; 85027; 85610; 85730; 93005; 96374; 96375; 99285; G0378; J2270; J2405; J7030